=== PATIENT | male | born 1965 | race Caucasian/White ===

== ENCOUNTER → 2019-09-28 | Outpatient (CLI) | payer BC ==
[~2019-09-28] MED LIST: AMLODIPINE BESY10 MG PO; AMOXICILLIN500 M1 PO; ASPIRIN325 MG PO; ATORVASTATIN CA40 MG PO; DIFLUCAN100 MG PO; DOXYCYCLINE HY100 MG PO; FUROSEMIDE20 MG PO; GRIFULVIN V500 MG PO; LOSARTAN-HCTZ1 EAC2 PO; METFORMIN HCL500 M1 PO; METFORMIN HCL500 M2 PO
--- NOTE | 2019-09-28 15:20 | Diagnostic Imaging Report ---
EXAMINATION: SP LUMBAR, COMPLETE MIN 4VW INDICATION: Back pain COMPARISON: None FINDINGS: No compression fracture. Vertebral body heights are well-maintained. Alignment appears anatomic. Mild multilevel degenerative changes with small osteophyte formation. Atherosclerotic arterial calcifications. Nonobstructive bowel gas pattern. No free air. IMPRESSION: No compression fracture. Mild multilevel degenerative changes. Signed by: Tez Ray MD on 09/28/2019 3:16 PM
== END ==
LOC: RAD 14:20
PROVIDERS: ATTEND Family Medicine
DX: M54.5 Low back pain (principal)
CPT/HCPCS: 72110